=== PATIENT | female | born 1995 | race Caucasian/White ===

== ENCOUNTER → 2021-05-07 | Outpatient (CLI) | payer BC ==
[2021-05-07 16:10] LABS: BASO # 0.02 K/mm3 (0.02-0.10); EOS # 0.01 K/mm3 (0.04-0.40); EOS % 0.1 % (1.0-5.0); HEMATOCRIT 42.5 % (37.0-47.0); HEMOGLOBIN 14.2 g/dL (12.5-16.0); LYMPH# 1.56 K/mm3 (1.50-4.00); MEAN CELL VOLUME 89 fl (78-100); MEAN CORPUSCULAR HEMOGLOBIN 30 pg (27-31); MEAN CORPUSCULAR HGB CONC 33 g/dL (33-37); MEAN PLATELET VOLUME 9.1 fl (7.4-10.4); MONO # 0.29 K/mm3 (0.20-0.80); NEU # 5.61 K/mm3 (1.40-6.50); PLATELET COUNT 269 K/mm3 (130-400); RED BLOOD COUNT 4.76 M/mm3 (4.10-5.30); RED CELL DISTRIBUTION WIDTH 12.5 % (11.5-14.5); WHITE BLOOD COUNT 7.5 K/mm3 (4.8-10.8)
[2021-05-07 16:19] LABS: ALBUMIN 4.4 g/dL (3.5-5.0); POTASSIUM 3.9 mmol/L (3.5-5.1)
[2021-05-07 16:20] LABS: CALCIUM 9.5 mg/dL (8.3-10.5)
[2021-05-07 16:23] LABS: TOTAL BILIRUBIN 0.5 mg/dL (0.2-1.2)
== END ==
LOC: LAB 15:57
PROVIDERS: Physician Assistant
DX: Z00.00 Encounter for general adult medical examination without abnormal findings (principal); Z13.1 Encounter for screening for diabetes mellitus; Z13.29 Encounter for screening for other suspected endocrine disorder

== ENCOUNTER → 2021-08-14 | Outpatient (CLI) | payer BC | LOC: LAB 09:44 | DX: R35.0 Frequency of micturition (principal); R30.9 Painful micturition, unspecified; R31.9 Hematuria, unspecified ==

== ENCOUNTER → 2023-04-29 | Outpatient (CLI) | payer OTHER | LOC: LAB 17:22 | DX: E78.5 Hyperlipidemia, unspecified (principal) ==